=== PATIENT | male | born 1995 | race Caucasian/White ===

== ENCOUNTER 2018-07-14 02:42 | Emergency (ER) | payer MEDICAID, OTHER ==
[2018-07-14 03:27] VITALS: BMI 20.1
[2018-07-14 03:30] VITALS: RESP 18; O2SAT 100
[2018-07-14] MEDS ORDERED: DiphenhydrAMINE 50 mg/ml Inj IM STA (04:49)
--- NOTE | 2018-07-14 05:23 | ED PDOC ---
HPI: Skin/Bite Injury Time Seen by Provider: 07/14/18 04:11 Chief Complaint (Nursing): Abnormal Skin Integrity Chief Complaint (Provider): Abnormal Skin Integrity History Per: Patient History/Exam Limitations: no limitations Onset/Duration Of Symptoms: Other (x3 weeks) Additional Complaint(s): 22 year old male, with a past medical history of multiple sclerosis, presents to the ED complaining of urticaria for 3 weeks. Patient states he has been applying Benadryl cream with no relief and hasn't seen a muleser. Denies SOB. PMD: Dr. Jansen,Rhys Alcala Past Medical History Reviewed: Historical Data, Nursing Documentation, Vital Signs Vital Signs: Last Vital Signs Temp 98.6 F 07/14/18 03:28 Pulse 87 07/14/18 03:28 Resp 18 07/14/18 03:28 BP 129/83 07/14/18 03:28 Pulse Ox 100 07/14/18 03:28 - Medical History PMH: Anxiety, Depression, Multiple Sclerosis Denies: Diabetes, Hepatitis, HIV, HTN, Chronic Kidney Disease, Seizures, Sexually Transmitted Disease - Surgical History Surgical History: No Surg Hx - Family History Family History: States: Unknown Family Hx - Social History Current smoker - smoking cessation education provided: No Alcohol: None Drugs: Denies - Immunization History Hx Tetanus Toxoid Vaccination: No Hx Influenza Vaccination: No Hx Pneumococcal Vaccination: No - Home Medications Home Medications: Ambulatory Orders Medication Instructions Recorded DiphenhydrAMINE [Benadryl] 50 mg PO HS PRN #0 cap 08/31/15 Loratadine [Claritin] 10 mg PO DAILY #20 tab 07/14/18 Methylprednisolone [Medrol Dose 4 mg PO DAILY #21 mg 07/14/18 Pack (21 tabs)] - Allergies Allergies/Adverse Reactions: Allergies Allergy/AdvReac Type Severity Reaction Status Date / Time No Known Allergies Allergy Verified 07/14/18 03:27 Review of Systems ROS Statement: Except As Marked, All Systems Reviewed And Found Negative Respiratory: Negative for: Shortness of Breath Skin: Positive for: Other (urticaria) Physical Exam - Reviewed Nursing Documentation Reviewed: Yes Vital Signs Reviewed: Yes - Physical Exam Appears: Positive for: Non-toxic, No Acute Distress Head Exam: Positive for: ATRAUMATIC, NORMOCEPHALIC Skin: Positive for: Warm, Dry, Rash (urticaria rash to bilateral arms, legs, chest, and back; rash is blanching and splotchy) Eye Exam: Positive for: Normal appearance Neck: Positive for: Normal, Painless ROM Cardiovascular/Chest: Positive for: Regular Rate, Rhythm. Negative for: Murmur Respiratory: Positive for: Normal Breath Sounds. Negative for: Wheezing, Respiratory Distress Extremity: Positive for: Normal ROM Neurologic/Psych: Positive for: Alert, Oriented. Negative for: Motor/Sensory Deficits - ECG O2 Sat by Pulse Oximetry: 100 (RA) Pulse Ox Interpretation: Normal Medical Decision Making Medical Decision Making: Initial Impression: Mild allergic reaction Initial Plan: --Benadryl 50mg IM --Claritin 10mg PO --Prednisone 60mg PO Patient had no respiratory compromise. Will treat symptomatically and will add on steroid and antihistamine. Patient strongly advised to follow up with muleser. Scribe Attestation: Documented by Geoffrey Mancia acting as a scribe for Darrian Ballesteros MD. Provider Scribe Attestation: All medical record entries made by the Scribe were at my direction and personally dictated by me. I have reviewed the chart and agree that the record accurately reflects my personal performance of the history, physical exam, medical decision making, and the department course for this patient. I have also personally directed, reviewed, and agree with the discharge instructions and disposition. Disposition - Clinical Impression Clinical Impression: Urticaria - Disposition Referrals: [facility] [Outside] Condition: STABLE Additional Instructions: You must see a muleser or disability rater in the next 2 - 3 days. Prescriptions: Loratadine [Claritin] 10 mg PO DAILY #20 tab Methylprednisolone [Medrol Dose Pack (21 tabs)] 4 mg PO DAILY #21 mg Instructions: Hives Forms: [employer] ([place])
[2018-07-14 05:57] VITALS: BP 119/81; PULSE 72; TEMP 98.5
== END 2018-07-14 05:57 | disposition home or self-care (01) ==
LOC: H.ER 02:42
DX: L50.9 Urticaria, unspecified (principal); G35 Multiple sclerosis
CPT/HCPCS: 96372; 99283; J1200